=== PATIENT | female | born 1940 | race Caucasian/White ===

== ENCOUNTER 2018-09-06 01:58 | Outpatient (CLI) | payer MEDICARE | END 2018-09-06 23:59 | disposition home or self-care (01) | LOC: RT 01:58 | PROVIDERS: ATTEND Internal Medicine Critical Care Medicine | DX: J84.10 Pulmonary fibrosis, unspecified (principal); I27.21 Secondary pulmonary arterial hypertension; J45.909 Unspecified asthma, uncomplicated; M19.90 Unspecified osteoarthritis, unspecified site; M85.80 Other specified disorders of bone density and structure, unspecified site; M41.9 Scoliosis, unspecified; I51.7 Cardiomegaly; Z88.5 Allergy status to narcotic agent; Z90.711 Acquired absence of uterus with remaining cervical stump | CPT/HCPCS: 94618 ==